=== PATIENT | female | born 1960 | race Caucasian/White ===

== ENCOUNTER 2017-01-14 01:09 | Emergency (ER) | payer OTHER, BC ==
--- NOTE | 2017-01-14 02:09 | PDOC ---
Lower Extremity Injury HPI - General Chief Complaint: Laceration / Wound Stated Complaint: LACERATION LEFT LOWER LEG Date Seen by Provider: 01/14/17 Time Seen by Provider: 01:20 Source: POSITIVE: Patient Exam Limitations: POSITIVE: No limitations Nurse's Notes Reviewed & Considered: Yes - History of Present Illness Initial Comments: The patient is a 56-year-old female who presents to the emergency department with a laceration to her left davenport. She states that at approximately 9 or 10: 00 this evening she bumped her d[place]port on the stair of a camper that she is staying in. 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 Later this evening she noticed some increased pain and throbbing in her davenport and subsequently checked her leg. She then noticed that she had a large laceration to the davenport. She is able to bear weight without any pain. She has no other associated injuries or complaints. She last had a tetanus shot 2 years ago. She does take prednisone for rheumatoid arthritis. She does not take any blood thinner medications. Have you received a tetanus shot in the past 10 years?: Yes - Patient Home Medications Home Medications: Home Medications Atenolol 50 mg PO DAILY 01/14/17 Levothyroxine Sodium [Synthroid] 75 mcg PO DAILY 01/14/17 Prednisolone 5 ng PO DAILY 01/14/17 Tamoxifen Citrate 20 mg PO DAILY 01/14/17 - Patient Allergies Allergies/Adverse Reactions: Allergies Allergy/AdvReac Type Severity Reaction Status Date / Time No Known Allergies Allergy Verified 01/14/17 01:45 Past Medical History Past Medical History Reviewed: Other (please comment) (Written nursing documentation reviewed) ROS - Limitations ROS Limitations: No Limitations (Review of systems otherwise noncontributory) Lower Ext Complaint Exam - General Appearance General Appearance: POSITIVE: Alert, Cooperative, No Acute Distress - Extremities Lower Extremity: POSITIVE: Other (Examination left lower extremity reveals a V- shaped laceration to the mid davenport that measures 8 or 9 cm in length, there is no active bleeding currently and the wound appears clean with no visible foreign body) Gait: POSITIVE: Normal Neurovascular/Tendon: POSITIVE: Sensation Normal, Motor Normal, No Vascular Compromise Procedures - Laceration/Wound Repair Did patient have a laceration repair: Yes Site of Laceration/Wound: Left davenport Wound Length (cm): 9 Wound's Depth, Shape: Into subcutaneous tissue, Linear (V-shaped) Skin Prep: Betadine Prep Local Anesthesia Used - Indicate Amt Used in Comment: Lidocaine 1%: Yes Wound Explored: Clean Wound Repaired With: Sutures single layer Suture Size/Type: 4:0, Ethilon Number of Sutures: 18 Layer Closure?: No Sterile Dressing Applied?: Yes Splint Applied?: No Lower Ext Complaint Progress - Patient's Progress MDM / ED Course: The laceration on the left davenport was repaired as above. Wound care instructions were discussed. There was some bruising around the wound and there was a fair amount of tension on the wound. She was advised to keep the wound covered with the dressing applied here for the first 48 hours. She then was advised to use an Flaco wrap during the day and leave it open at night. She will return to the emergency room or follow-up if any development of infection. She was advised to have sutures removed in 14 days. - Consult Counseled: POSITIVE: Patient, Family, RE: DX, RE: Need for F/U Patient Care Time - Estimated PCT Patient Care Time (In Minutes): 30 Vital Signs - VS Reviewed Vital Signs Reviewed: Yes (written nursing documentation reviewed) Discharge Clinical Impression: Laceration - injury Discharge Disposition: Discharged to Home Condition: Stable Patient Instructions Given at Discharge: Laceration (ED) Additional Instructions: Keep the dressing in place for the first 48 hours and keep dry. After that you can shower as normal however do not soak the leg and water for prolonged periods of time while the stitches are in place. Keep covered during the day with a bandage and Flaco wrap and then leave open at night after the first 48 hours. Monitor for any sign of infection and return to the emergency room or follow-up if increased swelling or redness around the wound, drainage from the wound, increased pain, fever. Sutures will need to be removed in approximately 14 days. Follow Up With: NONE,NONE [Primary Care Provider] -
[2017-01-14 02:43] VITALS: RESP 18; TEMP 98
== END 2017-01-14 02:15 | disposition home or self-care (01) ==
LOC: ER 01:09
DX: S81.812A Laceration without foreign body, left lower leg, initial encounter (principal); M06.9 Rheumatoid arthritis, unspecified; W22.8XXA Striking against or struck by other objects, initial encounter
CPT/HCPCS: 12004; 99282